=== PATIENT | female | born 1980 | race Hispanic/Latino ===

== ENCOUNTER 2021-12-26 20:54 | Emergency (ER) | payer OTHER, SELFPAY ==
[2021-12-26] MEDS ORDERED: Ketorolac Tromethamine 30 MG/ML VIAL ONE (21:25)
[2021-12-26 21:43] LABS: #Eosinphils 0.1 10x3/uL (0.0-0.5); #Neutrophils 8.3 10x3/uL (1.5-8.4); %Basophils 0.3 % (0.0-2.0); %Eosinophils 0.7 % (0.0-6.0); %Lymphocytes 21.7 % (18.0-47.0); %Monocytes 8.3 % (0.0-10.0); %Neutrophils 68.5 % (40.0-75.0); Hemoglobin 13.8 g/dL (12.0-15.5); Mean Corpuscular HGB CONC 33.9 g/dL (32.0-36.0); Mean Corpuscular Hemoglobin 28.3 pg (27.0-33.0); Mean Corpuscular Volume 83.6 fl (81.6-98.3); Platelet Count 213 10x3/uL (150-450); RBC Distribution Width 13.3 % (11.5-14.5); Red Blood Cell (RBC) Count 4.87 10x6/uL (3.90-5.03); White Blood Cell (WBC) Count 12.1 10x3/uL (3.5-10.5)
[2021-12-26] MEDS ORDERED: Morphine 4 MG/ML VIAL ONE (21:43)
[2021-12-26] MEDS ORDERED: Ondansetron PF 4 MG/2 ML Vial ONE (21:43)
[2021-12-26 21:48] LABS: BHCG - Serum Negative (NEGATIVE); Pregs Control Background? CLEAR/WHITE (CLR/WHITE); Pregs Control Bar Appear? YES (CONTROL BAR)
[2021-12-26 21:57] LABS: ALT (SGPT) 48 U/L (8-55); AST (SGOT) 25 U/L (5-34); Albumin 3.8 g/dL (3.5-5.0); Alkaline Phosphatase 107 U/L (40-110); Anion Gap 15 mmol/L (10-20); BUN (Urea Nitrogen) 11 mg/dL (7.0-18.7); Calc. Creatinine Clearance 0 mL/min (70-130); Calcium 9.2 mg/dL (7.8-10.44); Carbon Dioxide 21 mmol/L (22-29); Chloride 101 mmol/L (98-107); Estimated GFR 99; Globulin 3.6 g/dL (2.4-3.5); Glucose 347 mg/dL (70-105); Lipase 26 U/L (8-78); Potassium 3.7 mmol/L (3.5-5.1); Protein, Total 7.4 g/dL (6.0-8.3); Sodium 133 mmol/L (136-145)
[2021-12-26 22:04] LABS: Pregnancy Test - Urine (BHCG) Negative (Negative); Pregu Control Background? CLEAR/WHITE (CLR/WHITE); Pregu Control Bar Appear? YES (CONTROL BAR); Specific Gravity 1.015 (1.002-1.036)
[2021-12-26 22:11] LABS: Bilirubin Neg (Negative); Blood, Urine 25 (Negative); Clarity Slightly Cloudy (Clear); Glucose, Urine (Dipstick) >=1000 mg/dL (Negative); Ketone, Urine 5 mg/dL (Negative); Leukocyte 25 (Negative); Nitrite Negative (Negative); Protein, Urine (Dipstick) Negative (Neg-Trace); Specific Gravity, Urine 1.015 (1.002-1.036); Urobilinogen Normal mg/dL (Less than 2)
[2021-12-26 22:16] LABS: Bacteria/HPF 3+ HPF (None Seen); Squamous Epithelial 0-3 HPF (0-3)
[2021-12-27] MEDS ORDERED: diphenhydrAMINE 50 MG/ML VIAL ONE (00:07)
[2021-12-27] MEDS ORDERED: Haloperidol Lactate 5 MG/ML VIAL ONE (00:07)
[2021-12-27] MEDS ORDERED: HYDROmorphone 0.5 MG/0.5 ML SYRINGE ONE ×2 (02:05→03:58)
== END 2021-12-27 04:35 | disposition home or self-care (01) ==
LOC: CSHERS 20:54
DX: N83.201 Unspecified ovarian cyst, right side (principal); R10.84 Generalized abdominal pain; F17.210 Nicotine dependence, cigarettes, uncomplicated; E11.9 Type 2 diabetes mellitus without complications; Z79.84 Long term (current) use of oral hypoglycemic drugs
CPT/HCPCS: 36415; 74177; 76856; 80053; 81003; 81015; 81025; 83605; 83690; 84702; 84703; 85025; 96361; 96374; 96375; 96376; J1170; J1200; J1630; J1885; J2270; J2405

== ENCOUNTER 2021-12-27 12:50 | Observation (INO) | payer SELFPAY ==
[2021-12-27] MEDS ORDERED: Fentanyl 100 MCG/2 ML VIAL ONE ×3 (15:16→19:03)
[2021-12-27] MEDS ORDERED: Ketorolac Tromethamine 30 MG/ML VIAL ONE (15:16)
[2021-12-27 15:55] LABS: #Eosinphils 0.1 10x3/uL (0.0-0.5); #Monocytes 0.8 10x3/uL (0.0-1.1); #Neutrophils 9.1 10x3/uL (1.5-8.4); %Basophils 0.2 % (0.0-2.0); %Eosinophils 0.4 % (0.0-6.0); %Lymphocytes 17.4 % (18.0-47.0); %Monocytes 6.4 % (0.0-10.0); %Neutrophils 75.1 % (40.0-75.0); Hemoglobin 12.8 g/dL (12.0-15.5); Mean Corpuscular HGB CONC 33.8 g/dL (32.0-36.0); Mean Corpuscular Hemoglobin 28.4 pg (27.0-33.0); Mean Platelet Volume 10.5 fl (7.4-10.4); Platelet Count 189 10x3/uL (150-450); RBC Distribution Width 13.2 % (11.5-14.5); Red Blood Cell (RBC) Count 4.51 10x6/uL (3.90-5.03); White Blood Cell (WBC) Count 12.2 10x3/uL (3.5-10.5)
[2021-12-27 15:59] LABS: BHCG - Serum Negative (NEGATIVE); Pregs Control Background? CLEAR/WHITE (CLR/WHITE); Pregs Control Bar Appear? YES (CONTROL BAR)
[2021-12-27 16:07] LABS: Anion Gap 12 mmol/L (10-20); BUN (Urea Nitrogen) 8 mg/dL (7.0-18.7); Calc. Creatinine Clearance 0 mL/min (70-130); Calcium 8.7 mg/dL (7.8-10.44); Carbon Dioxide 24 mmol/L (22-29); Chloride 102 mmol/L (98-107); Estimated GFR 114; Glucose 223 mg/dL (70-105); Potassium 3.7 mmol/L (3.5-5.1); Sodium 134 mmol/L (136-145)
[2021-12-27] MEDS ORDERED: Morphine 4 MG/ML VIAL ONE (16:30)
[2021-12-27] MEDS ORDERED: HumaLOG 300 UNITS/3 ML VIAL SC PRN (16:45)
[2021-12-27] MEDS ORDERED: Calcium Carbonate 500 MG ChewTAB PO PRN (16:45)
[2021-12-27] MEDS ORDERED: Senokot S 8.6-50 MG TAB PO PRN (16:45)
[2021-12-27] MEDS ORDERED: Dextrose 5% in Water 1,000 ML IV PRN (16:45)
[2021-12-27] MEDS ORDERED: Ondansetron PF 4 MG/2 ML Vial IVP PRN (16:45)
[2021-12-27] MEDS ORDERED: Morphine 4 MG/ML VIAL SLOW IVP PRN (16:45)
[2021-12-27] MEDS ORDERED: Bisacodyl 5 MG TAB PO PRN (16:45)
[2021-12-27] MEDS ORDERED: Dextrose 50% Abboject 50 ML SYRINGE SLOW IVP PRN (16:45)
[2021-12-27] MEDS ORDERED: Ondansetron ODT 4 MG TAB PO PRN (16:45)
[2021-12-27] MEDS ORDERED: cefTRIAXone\\ROCEPHIN 2 GM VIAL ONE (18:09)
[2021-12-27 19:20] LABS: SARS-CoV-2 NAA Rapid Test Not Detected (NotDetected)
[2021-12-27] MEDS: Acetaminophen 500 MG TAB PO SCH (21:54)
[2021-12-27] MEDS: Cyclobenzaprine 10 MG TAB PO SCH (21:55)
[2021-12-27] MEDS: Ketorolac Tromethamine 30 MG/ML VIAL IVP SCH (22:07)
[2021-12-27] MEDS: HumaLOG 300 UNITS/3 ML VIAL SC PRN (23:53)
[2021-12-27] MEDS: Lactated Ringer's 1,000 ML IV SCH (23:55)
[2021-12-28] MEDS ORDERED: Morphine 4 MG/ML VIAL SLOW IVP SCH (00:30)
[2021-12-28] MEDS: Promethazine HCl 25 MG in Sodium Chloride 0.9% 50 ML IVPB PRN ×2 (00:56→09:15)
[2021-12-28] MEDS: Acetaminophen 500 MG TAB PO SCH (02:00)
[2021-12-28] MEDS: Ketorolac Tromethamine 30 MG/ML VIAL IVP SCH ×2 (03:51→09:13)
[2021-12-28 05:06] LABS: #Eosinphils 0.1 10x3/uL (0.0-0.5); #Monocytes 0.6 10x3/uL (0.0-1.1); %Basophils 0.3 % (0.0-2.0); %Eosinophils 1.5 % (0.0-6.0); %Lymphocytes 27.5 % (18.0-47.0); %Monocytes 7.9 % (0.0-10.0); %Neutrophils 62.2 % (40.0-75.0); Hemoglobin 11.9 g/dL (12.0-15.5); Mean Corpuscular HGB CONC 33.5 g/dL (32.0-36.0); Mean Corpuscular Hemoglobin 28.3 pg (27.0-33.0); Mean Corpuscular Volume 84.5 fl (81.6-98.3); Mean Platelet Volume 10.7 fl (7.4-10.4); Platelet Count 185 10x3/uL (150-450); RBC Distribution Width 13.3 % (11.5-14.5)
[2021-12-28 05:15] LABS: Anion Gap 13 mmol/L (10-20); BUN (Urea Nitrogen) 11 mg/dL (7.0-18.7); Calc. Creatinine Clearance 188 mL/min (70-130); Calcium 8.6 mg/dL (7.8-10.44); Carbon Dioxide 24 mmol/L (22-29); Chloride 104 mmol/L (98-107); Estimated GFR 105; Glucose 271 mg/dL (70-105); Potassium 3.6 mmol/L (3.5-5.1); Sodium 137 mmol/L (136-145)
[2021-12-28] MEDS ORDERED: Acetaminophen 500 MG TAB PO SCH (06:00)
[2021-12-28] MEDS: HYDROcodone/Acetaminophen 7.5/325 mg Tablet PO PRN ×2 (06:10→11:36)
[2021-12-28] MEDS: HumaLOG 300 UNITS/3 ML VIAL SC PRN ×2 (06:13→11:36)
[2021-12-28] MEDS: Lactated Ringer's 1,000 ML IV SCH ×2 (08:04→09:13)
[2021-12-28] MEDS: Cyclobenzaprine 10 MG TAB PO SCH (09:15)
[2021-12-28 11:34] VITALS: BP 114/73; TEMP 98.4
[2021-12-28 12:57] LABS: Hemoglobin A1c 9.8 % (4.0-6.0)
[2021-12-28] MEDS ORDERED: cefTRIAXone\\ROCEPHIN 1 GM in Sodium Chloride 0.9% 100 ML IVPB SCH ×2 (16:00→18:00)
== END 2021-12-28 14:45 | disposition home or self-care (01) ==
LOC: CSHERS 12:50 → CSHPP 19:23
PROVIDERS: ADMIT Obstetrics & Gynecology; ATTEND Obstetrics & Gynecology
DX: N83.201 Unspecified ovarian cyst, right side (principal); N39.0 Urinary tract infection, site not specified; E11.9 Type 2 diabetes mellitus without complications; F17.290 Nicotine dependence, other tobacco product, uncomplicated; Z20.822 Contact with and (suspected) exposure to COVID-19; E66.9 Obesity, unspecified; Z68.41 Body mass index [BMI] 40.0-44.9, adult; Z79.82 Long term (current) use of aspirin; Z79.84 Long term (current) use of oral hypoglycemic drugs; Z79.899 Other long term (current) drug therapy; Z91.018 Allergy to other foods
CPT/HCPCS: 36415; 36416; 76856; 80048; 83036; 83605; 84703; 85025; 87040; 87086; 96361; 96365; 96367; 96375; 96376; G0378; J0696; J1815; J1885; J2270; J2550; J3010; J7120; Q0162; U0002

== ENCOUNTER 2022-05-29 10:33 | Emergency (ER) | payer SELFPAY ==
[~2022-05-29 10:33] MED LIST: Iopamidol 300 61% 100 ML VIAL FS ONE
[2022-05-29 11:06] LABS: Bilirubin Neg (Negative); Blood, Urine 10 (Negative); Clarity Clear (Clear); Glucose, Urine (Dipstick) >=1000 mg/dL (Negative); Ketone, Urine 15 mg/dL (Negative); Leukocyte Negative (Negative); Nitrite Negative (Negative); Protein, Urine (Dipstick) Negative (Neg-Trace); Urobilinogen Normal mg/dL (Less than 2)
[2022-05-29 11:09] LABS: #Eosinphils 0.1 10x3/uL (0.0-0.5); #Monocytes 0.8 10x3/uL (0.0-1.1); #Neutrophils 6.4 10x3/uL (1.5-8.4); %Basophils 0.4 % (0.0-2.0); %Eosinophils 0.8 % (0.0-6.0); %Lymphocytes 27.9 % (18.0-47.0); %Monocytes 7.7 % (0.0-10.0); %Neutrophils 62.9 % (40.0-75.0); Hemoglobin 14.7 g/dL (12.0-15.5); Mean Corpuscular Hemoglobin 28.7 pg (27.0-33.0); Mean Corpuscular Volume 84.2 fl (81.6-98.3); Mean Platelet Volume 10.7 fl (7.4-10.4); Platelet Count 244 10x3/uL (150-450); RBC Distribution Width 13.9 % (11.5-14.5); Red Blood Cell (RBC) Count 5.13 10x6/uL (3.90-5.03); White Blood Cell (WBC) Count 10.1 10x3/uL (3.5-10.5)
[2022-05-29 11:10] LABS: Pregnancy Test - Urine (BHCG) Negative (Negative); Pregu Control Background? CLEAR/WHITE (CLR/WHITE); Pregu Control Bar Appear? YES (CONTROL BAR)
[2022-05-29 11:23] LABS: ALT (SGPT) 88 U/L (8-55); AST (SGOT) 87 U/L (5-34); Albumin 4.2 g/dL (3.5-5.0); Alkaline Phosphatase 104 U/L (40-110); Anion Gap 13 mmol/L (10-20); BUN (Urea Nitrogen) 11 mg/dL (7.0-18.7); Bilirubin, Total 0.9 mg/dL (0.2-1.2); Calc. Creatinine Clearance 0 mL/min (70-130); Calcium 9.4 mg/dL (7.8-10.44); Carbon Dioxide 24 mmol/L (22-29); Chloride 102 mmol/L (98-107); Estimated GFR 105; Globulin 3.9 g/dL (2.4-3.5); Glucose 238 mg/dL (70-105); Lipase 19 U/L (8-78); Potassium 3.8 mmol/L (3.5-5.1); Protein, Total 8.1 g/dL (6.0-8.3); Sodium 135 mmol/L (136-145)
[2022-05-29 11:37] LABS: SARS-CoV-2 NAA Rapid Test Not Detected (NotDetected)
[2022-05-29 11:44] LABS: Bacteria/HPF Rare-Few HPF (None Seen); RBC/HPF 0-3 HPF (0-3); Squamous Epithelial 0-3 HPF (0-3); WBC/HPF 0-3 HPF (0-3)
[2022-05-29] MEDS ORDERED: Ketorolac Tromethamine 30 MG/ML VIAL ONE (13:12)
[2022-05-29] MEDS ORDERED: Ondansetron PF 4 MG/2 ML Vial ONE (13:12)
== END 2022-05-29 14:12 | disposition home or self-care (01) ==
LOC: CSHERS 10:33
DX: R10.9 Unspecified abdominal pain (principal); R11.2 Nausea with vomiting, unspecified; M25.551 Pain in right hip; M25.511 Pain in right shoulder; Z20.822 Contact with and (suspected) exposure to COVID-19
CPT/HCPCS: 36415; 74177; 80053; 81003; 81015; 81025; 83690; 85025; 96374; 96375; J1885; J2405; Q9967

== ENCOUNTER 2022-07-06 15:40 | Observation (INO) | payer SELFPAY ==
[2022-07-06 16:28] VITALS: BP 160/77; TEMP 97.5
[2022-07-06 16:34] VITALS: BMI 39.9
[2022-07-06] MEDS ORDERED: Cyclobenzaprine 10 MG TAB PO PRN (17:24)
[2022-07-06] MEDS ORDERED: Ketorolac Tromethamine 30 MG/ML VIAL IM SCH (17:45)
== END 2022-07-06 19:25 | disposition home or self-care (01) ==
LOC: CSHPP 15:40
PROVIDERS: ADMIT Obstetrics & Gynecology; ATTEND Obstetrics & Gynecology
DX: N83.201 Unspecified ovarian cyst, right side (principal); N83.202 Unspecified ovarian cyst, left side; E11.9 Type 2 diabetes mellitus without complications; Z79.84 Long term (current) use of oral hypoglycemic drugs; Z79.899 Other long term (current) drug therapy; Z91.010 Allergy to peanuts
CPT/HCPCS: 82105; 82378; 84702; 86301; 86304; J1885

== ENCOUNTER 2022-10-08 19:44 | Emergency (ER) | payer SELFPAY ==
[2022-10-08] MEDS ORDERED: Ketorolac Tromethamine 30 MG/ML VIAL ONE (21:28)
== END 2022-10-08 22:40 | disposition home or self-care (01) ==
LOC: CSHERS 19:44
DX: S22.32XA Fracture of one rib, left side, initial encounter for closed fracture (principal); E11.9 Type 2 diabetes mellitus without complications; F17.210 Nicotine dependence, cigarettes, uncomplicated; W19.XXXA Unspecified fall, initial encounter; Y99.0 Civilian activity done for income or pay
CPT/HCPCS: 71250; 96372; J1885

== ENCOUNTER 2023-06-01 04:03 | Inpatient (IN) | payer BC ==
[2023-06-01] MEDS ORDERED: EPINEPHrine 1 MG/ML AMP ONE (04:20)
[2023-06-01] MEDS ORDERED: Bupivacaine PF 0.5% 30 ML VIAL ONE (04:20)
[2023-06-01] MEDS ORDERED: fentaNYL 50 mcg/mL 1 mL Vial ONE ×2 (04:27→06:32)
[2023-06-01] MEDS ORDERED: Lidocaine 2% MPF 10 ML AMP (For Epidural Use) ONE (04:27)
[2023-06-01] MEDS ORDERED: PROPOFOL 20 ML ONE (04:27)
[2023-06-01] MEDS ORDERED: HYDROmorphone 0.5 MG/0.5 ML SYRINGE ONE (04:29)
[2023-06-01] MEDS ORDERED: Rocuronium Bromide 10 MG/ML (10ML VIAL) ONE (04:29)
[2023-06-01] MEDS ORDERED: Midazolam HCl 2 mg/2 ml Vial ONE (04:35)
[2023-06-01] MEDS ORDERED: CEFAZOLIN 2 GM in Sodium Chloride 0.9% 100 ML IVPB SCH (05:00)
[2023-06-01 05:01] LABS: #Eosinphils 0.1 10x3/uL (0.0-0.5); #Monocytes 0.6 10x3/uL (0.0-1.1); #Neutrophils 6.3 10x3/uL (1.5-8.4); %Basophils 0.3 % (0.0-2.0); %Eosinophils 0.8 % (0.0-6.0); %Lymphocytes 27.5 % (18.0-47.0); %Monocytes 6.2 % (0.0-10.0); %Neutrophils 64.9 % (40.0-75.0); Hematocrit 36.2 % (34.9-44.5); Hemoglobin 12.4 g/dL (12.0-15.5); Mean Corpuscular HGB CONC 34.3 g/dL (32.0-36.0); Mean Corpuscular Hemoglobin 28.8 pg (27.0-33.0); Mean Corpuscular Volume 84.2 fl (81.6-98.3); Mean Platelet Volume 10.8 fl (7.4-10.4); Platelet Count 228 10x3/uL (150-450); RBC Distribution Width 13.2 % (11.5-14.5); White Blood Cell (WBC) Count 9.6 10x3/uL (3.5-10.5)
[2023-06-01] MEDS ORDERED: PHENYLEPHRINE-NS 100 MCG/ML 10 ML SYRINGE ONE (05:01)
[2023-06-01] MEDS ORDERED: CEFAZOLIN 1 GM VIAL ONE (05:03)
[2023-06-01 05:11] LABS: ALT (SGPT) 33 U/L (8-55); AST (SGOT) 19 U/L (5-34); Albumin 3.7 g/dL (3.5-5.0); Alkaline Phosphatase 87 U/L (40-110); Anion Gap 13 mmol/L (10-20); BUN (Urea Nitrogen) 8 mg/dL (7.0-18.7); Bilirubin, Total 1.1 mg/dL (0.2-1.2); Calc. Creatinine Clearance 0 mL/min (70-130); Calcium 8.6 mg/dL (7.8-10.44); Carbon Dioxide 22 mmol/L (22-29); Chloride 104 mmol/L (98-107); Estimated GFR 114; Glucose 208 mg/dL (70-105); Potassium 3.6 mmol/L (3.5-5.1); Protein, Total 6.7 g/dL (6.0-8.3); Sodium 135 mmol/L (136-145)
[2023-06-01] MEDS ORDERED: Ondansetron PF 4 MG/2 ML Vial ONE (05:22)
[2023-06-01] MEDS ORDERED: Dexamethasone 20 MG/5 ML VIAL ONE (05:22)
[2023-06-01] MEDS ORDERED: Ketorolac Tromethamine 30 MG/ML VIAL ONE ×2 (05:22→15:48)
[2023-06-01] MEDS ORDERED: Glycopyrrolate 0.2 MG/ML 5 ML SYRINGE ONE (05:46)
[2023-06-01 05:51] LABS: PTT 27.6 sec (22.0-33.0); Prothrombin Time 10.6 sec (9.5-12.1)
[2023-06-01] MEDS: Lactated Ringer's 1,000 ML IV SCH ×2 (07:15→18:30)
[2023-06-01] MEDS ORDERED: Dextrose 5 %-0.45 % NaCl 1,000 ML IV SCH (07:56)
[2023-06-01] MEDS ORDERED: diphenhydrAMINE 25 MG CAP PO PRN (07:56)
[2023-06-01] MEDS ORDERED: Bisacodyl 10 MG SUPP PR PRN (07:56)
[2023-06-01] MEDS ORDERED: Ondansetron PF 4 MG/2 ML Vial IVP PRN (08:42)
[2023-06-01] MEDS ORDERED: Ondansetron ODT 4 MG TAB SL PRN (08:46)
[2023-06-01] MEDS: metFORMIN 500 MG TAB PO SCH ×2 (09:35→15:33)
[2023-06-01] MEDS: HYDROcodone/Acetaminophen 10/325 mg Tablet PO PRN ×3 (10:12→22:31)
[2023-06-01] MEDS: Simethicone Chewable 80 MG TAB PO PRN ×3 (10:13→22:31)
[2023-06-01] MEDS ORDERED: Dextrose 50% Abboject 50 ML SYRINGE SLOW IVP PRN (12:05)
[2023-06-01] MEDS ORDERED: Dextrose 5% in Water 1,000 ML IV PRN (12:05)
[2023-06-01] MEDS ORDERED: Glucagon 1 MG/ML KIT IM PRN (12:05)
[2023-06-01] MEDS: HumaLOG 300 UNITS/3 ML VIAL SC PRN ×2 (13:04→16:58)
[2023-06-01] MEDS: Morphine 4 MG/ML VIAL SLOW IVP PRN ×2 (15:33→20:10)
[2023-06-01] MEDS ORDERED: Ketorolac Tromethamine 30 MG/ML VIAL IVP SCH (15:45)
[2023-06-01 22:57] VITALS: BMI 29.3
[2023-06-02] MEDS: Morphine 4 MG/ML VIAL SLOW IVP PRN ×6 (00:29→21:50)
[2023-06-02] MEDS: HYDROcodone/Acetaminophen 10/325 mg Tablet PO PRN ×2 (02:27→11:32)
[2023-06-02] MEDS: Simethicone Chewable 80 MG TAB PO PRN ×3 (04:18→13:33)
[2023-06-02 05:42] LABS: Hematocrit 34.2 % (34.9-44.5); Hemoglobin 11.3 g/dL (12.0-15.5); Mean Corpuscular Hemoglobin 28.1 pg (27.0-33.0); Mean Corpuscular Volume 85.1 fl (81.6-98.3); Mean Platelet Volume 10.7 fl (7.4-10.4); Platelet Count 199 10x3/uL (150-450); RBC Distribution Width 13.2 % (11.5-14.5); Red Blood Cell (RBC) Count 4.02 10x6/uL (3.90-5.03); White Blood Cell (WBC) Count 11.5 10x3/uL (3.5-10.5)
[2023-06-02] MEDS: HumaLOG 300 UNITS/3 ML VIAL SC PRN ×4 (08:13→22:04)
[2023-06-02] MEDS: metFORMIN 500 MG TAB PO SCH ×2 (08:13→17:04)
[2023-06-02] MEDS ORDERED: Iopamidol 300 61% 100 ML VIAL FS ONE (09:58)
[2023-06-02 16:10] LABS: #Eosinphils 0.1 10x3/uL (0.0-0.5); #Neutrophils 7.9 10x3/uL (1.5-8.4); %Basophils 0.3 % (0.0-2.0); %Eosinophils 0.6 % (0.0-6.0); %Lymphocytes 24.5 % (18.0-47.0); %Monocytes 8.1 % (0.0-10.0); %Neutrophils 66.2 % (40.0-75.0); Hematocrit 35.5 % (34.9-44.5); Hemoglobin 11.8 g/dL (12.0-15.5); Mean Corpuscular HGB CONC 33.2 g/dL (32.0-36.0); Mean Corpuscular Hemoglobin 28.3 pg (27.0-33.0); Mean Corpuscular Volume 85.1 fl (81.6-98.3); Mean Platelet Volume 10.7 fl (7.4-10.4); Platelet Count 215 10x3/uL (150-450); RBC Distribution Width 13.6 % (11.5-14.5); Red Blood Cell (RBC) Count 4.17 10x6/uL (3.90-5.03); White Blood Cell (WBC) Count 11.9 10x3/uL (3.5-10.5)
[2023-06-02] MEDS: Ibuprofen 800 MG TAB PO SCH (16:56)
[2023-06-02] MEDS: Lactated Ringer's 1,000 ML IV SCH ×2 (18:19→18:20)
[2023-06-02] MEDS ORDERED: Acetaminophen 500 MG TAB PO SCH (18:30)
[2023-06-02] MEDS ORDERED: HYDROcodone/Acetaminophen 10/325 mg Tablet PO PRN (19:04)
[2023-06-02] MEDS ORDERED: Docusate 100 MG CAP PO SCH (19:30)
[2023-06-02] MEDS ORDERED: Polyethylene Glycol 3350 17 GM Packet PO SCH (19:30)
[2023-06-02] MEDS: Simethicone Chewable 80 MG TAB PO SCH (21:49)
[2023-06-03] MEDS: Ibuprofen 800 MG TAB PO SCH ×3 (01:04→15:43)
[2023-06-03 04:18] LABS: Hematocrit 31.5 % (34.9-44.5); Hemoglobin 10.3 g/dL (12.0-15.5); Mean Corpuscular HGB CONC 32.7 g/dL (32.0-36.0); Mean Corpuscular Hemoglobin 27.9 pg (27.0-33.0); Mean Corpuscular Volume 85.4 fl (81.6-98.3); Mean Platelet Volume 10.9 fl (7.4-10.4); Platelet Count 202 10x3/uL (150-450); RBC Distribution Width 13.6 % (11.5-14.5); Red Blood Cell (RBC) Count 3.69 10x6/uL (3.90-5.03)
[2023-06-03] MEDS: Acetaminophen 500 MG TAB PO SCH ×3 (05:43→20:35)
[2023-06-03] MEDS: Morphine 4 MG/ML VIAL SLOW IVP PRN (05:48)
[2023-06-03] MEDS ORDERED: Morphine 2 MG/ML VIAL SLOW IVP PRN ×2 (06:10→17:39)
[2023-06-03] MEDS: Lactated Ringer's 1,000 ML IV SCH (07:05)
[2023-06-03] MEDS: metFORMIN 500 MG TAB PO SCH (07:05)
[2023-06-03] MEDS: Docusate 100 MG CAP PO SCH ×2 (07:44→20:35)
[2023-06-03] MEDS: Simethicone Chewable 80 MG TAB PO SCH ×4 (07:44→22:48)
[2023-06-03] MEDS: Polyethylene Glycol 3350 17 GM Packet PO SCH ×3 (07:44→20:35)
[2023-06-03] MEDS: HYDROcodone/Acetaminophen 5/325 mg Tablet PO PRN ×3 (10:27→23:05)
[2023-06-03] MEDS: HumaLOG 300 UNITS/3 ML VIAL SC PRN ×3 (11:25→20:46)
[2023-06-03] MEDS ORDERED: Ibuprofen 600 MG TAB PO SCH (17:45)
[2023-06-03] MEDS: Ibuprofen 600 MG TAB PO SCH ×3 (17:55→23:05)
[2023-06-03] MEDS ORDERED: Simethicone Chewable 80 MG TAB PO SCH (22:45)
[2023-06-04] MEDS: HYDROcodone/Acetaminophen 5/325 mg Tablet PO PRN (04:30)
[2023-06-04] MEDS: Acetaminophen 500 MG TAB PO SCH (04:32)
[2023-06-04] MEDS: HumaLOG 300 UNITS/3 ML VIAL SC PRN (06:03)
[2023-06-04] MEDS: metFORMIN 500 MG TAB PO SCH (07:17)
[2023-06-04 07:59] VITALS: BP 135/86; TEMP 98.2
[2023-06-04] MEDS: Polyethylene Glycol 3350 17 GM Packet PO SCH (08:22)
[2023-06-04] MEDS: Docusate 100 MG CAP PO SCH (08:22)
[2023-06-04] MEDS: Ibuprofen 600 MG TAB PO SCH (08:22)
[2023-06-04] MEDS ORDERED: Simethicone Chewable 80 MG TAB PO SCH (09:00)
== END 2023-06-04 08:29 | disposition home or self-care (01) | DRG 743 ==
LOC: CSHERS 04:03 → CSHPP 04:51
PROVIDERS: ADMIT Obstetrics & Gynecology; ATTEND Obstetrics & Gynecology
PROC: 0UB50ZZ Excision of Right Fallopian Tube, Open Approach (ICD-10-PCS; principal; 2023-06-01)
PROC: 0UB00ZZ Excision of Right Ovary, Open Approach (ICD-10-PCS; 2023-06-01)
DX: N83.511 Torsion of right ovary and ovarian pedicle (principal); E11.9 Type 2 diabetes mellitus without complications; Z90.49 Acquired absence of other specified parts of digestive tract; F41.9 Anxiety disorder, unspecified; F17.210 Nicotine dependence, cigarettes, uncomplicated; Z79.899 Other long term (current) drug therapy; Z79.84 Long term (current) use of oral hypoglycemic drugs; K59.00 Constipation, unspecified; N83.201 Unspecified ovarian cyst, right side; Z79.01 Long term (current) use of anticoagulants
CPT/HCPCS: 36415; 36416; 74177; 76856; 80053; 81001; 84702; 85025; 85027; 85610; 85730; 86850; 86900; 86901; 87086; 88305; 96361; 96374; 96375; 96376; C1889; J0171; J0690; J1100; J1170; J1815; J1885; J2250; J2270; J2272; J2405; J2704; J3010; J7120; Q0162; Q9967; S0020

== ENCOUNTER 2023-06-11 11:39 | Emergency (ER) | payer BC ==
[2023-06-11 12:31] LABS: Bilirubin Neg (Negative); Blood, Urine 25 (Negative); Clarity Clear (Clear); Glucose, Urine (Dipstick) >=1000 mg/dL (Negative); Ketone, Urine Negative (Negative); Leukocyte Negative (Negative); Nitrite Negative (Negative); Protein, Urine (Dipstick) 15 mg/dl (Neg-Trace); Urobilinogen Normal mg/dL (Less than 2)
[2023-06-11] MEDS ORDERED: Ketorolac Tromethamine 30 MG/ML VIAL ONE ×2 (12:35→13:49)
[2023-06-11 12:47] LABS: #Monocytes 1.2 10x3/uL (0.0-1.1); #Neutrophils 12.2 10x3/uL (1.5-8.4); %Basophils 0.2 % (0.0-2.0); %Eosinophils 0.3 % (0.0-6.0); %Lymphocytes 10.7 % (18.0-47.0); %Monocytes 7.7 % (0.0-10.0); %Neutrophils 80.5 % (40.0-75.0); Hematocrit 39.5 % (34.9-44.5); Hemoglobin 13.2 g/dL (12.0-15.5); Mean Corpuscular HGB CONC 33.4 g/dL (32.0-36.0); Mean Corpuscular Volume 83.9 fl (81.6-98.3); Mean Platelet Volume 9.9 fl (7.4-10.4); Platelet Count 318 10x3/uL (150-450); RBC Distribution Width 13.2 % (11.5-14.5); Red Blood Cell (RBC) Count 4.71 10x6/uL (3.90-5.03); White Blood Cell (WBC) Count 15.1 10x3/uL (3.5-10.5)
[2023-06-11 12:52] LABS: Bacteria/HPF 2+ HPF (None Seen); CAUTI Indications for Culture Pelvic or flank pain; RBC/HPF 0-3 HPF (0-3); WBC/HPF 0-3 HPF (0-3)
[2023-06-11 12:53] LABS: Urine Culture Reflex No No
[2023-06-11 12:56] LABS: ALT (SGPT) 16 U/L (8-55); AST (SGOT) 15 U/L (5-34); Albumin 3.9 g/dL (3.5-5.0); Alkaline Phosphatase 98 U/L (40-110); Anion Gap 14 mmol/L (10-20); BUN (Urea Nitrogen) 11 mg/dL (7.0-18.7); Bilirubin, Total 1.1 mg/dL (0.2-1.2); Calc. Creatinine Clearance 0 mL/min (70-130); Carbon Dioxide 22 mmol/L (22-29); Chloride 99 mmol/L (98-107); Estimated GFR 99; Glucose 339 mg/dL (70-105); Potassium 3.8 mmol/L (3.5-5.1); Protein, Total 7.9 g/dL (6.0-8.3); Sodium 131 mmol/L (136-145)
[2023-06-11] MEDS ORDERED: HYDROcodone/Acetaminophen 5/325 mg Tablet ONE (14:44)
== END 2023-06-11 17:44 | disposition home or self-care (01) ==
LOC: CSHERS 11:39
DX: L76.34 Postprocedural seroma of skin and subcutaneous tissue following other procedure (principal); E11.9 Type 2 diabetes mellitus without complications; F17.210 Nicotine dependence, cigarettes, uncomplicated
CPT/HCPCS: 74177; 80053; 81001; 85025; 96374; 96376; J1885; Q9967

== ENCOUNTER 2024-05-29 09:46 | Emergency (ER) | payer OTHER ==
[2024-05-29] MEDS ORDERED: Ipratropium/Albuterol 3 ML NEB ONE (11:04)
[2024-05-29 11:07] LABS: Bilirubin Neg (Negative); Blood, Urine 10 (Negative); Clarity Clear (Clear); Glucose, Urine (Dipstick) >=1000 mg/dL (Negative); Ketone, Urine Negative (Negative); Leukocyte 100 (Negative); Nitrite Positive (Negative); Protein, Urine (Dipstick) 15 mg/dl (Neg-Trace); Specific Gravity, Urine 1.015 (1.005-1.030); Urobilinogen Normal mg/dL (Less than 2)
[2024-05-29 11:18] LABS: Pregnancy Test - Urine (BHCG) Negative (Negative); Pregu Control Background? CLEAR/WHITE (CLR/WHITE); Pregu Control Bar Appear? YES (CONTROL BAR); Specific Gravity 1.015 (1.002-1.036)
[2024-05-29] MEDS ORDERED: Cephalexin 250 MG CAP ONE (11:57)
[2024-05-29] MEDS ORDERED: Lisinopril 10 MG TAB PO SCH (12:15)
[2024-05-29 12:23] LABS: Bacteria/HPF 3+ HPF (None Seen); CAUTI Indications for Culture Pelvic or flank pain; RBC/HPF 0-3 HPF (0-3); Squamous Epithelial 0-3 HPF (0-3); Trichomonas/HPF 1+ HPF (None Seen)
[2024-05-29 12:24] LABS: Urine Culture Reflex No No
[2024-05-29] MEDS ORDERED: Furosemide 40 MG TAB ONE (12:50)
[2024-05-29] MEDS ORDERED: cefTRIAXone (ROCEPHIN) 1 GM VIAL ONE (14:05)
[2024-05-29] MEDS ORDERED: Lidocaine 1% PF 5 ML VIAL ONE (14:05)
[2024-05-29 15:29] LABS: Anion Gap 13 mmol/L (10-20); BUN (Urea Nitrogen) 10 mg/dL (7.0-18.7); Calc. Creatinine Clearance 0 mL/min (70-130); Calcium 9.1 mg/dL (7.8-10.44); Carbon Dioxide 26 mmol/L (22-29); Chloride 102 mmol/L (98-107); Estimated GFR 107; Glucose 268 mg/dL (70-105); Potassium 3.7 mmol/L (3.5-5.1); Sodium 137 mmol/L (136-145)
== END 2024-05-29 14:09 | disposition home or self-care (01) ==
LOC: CSHERS 09:46
DX: N10 Acute pyelonephritis (principal); I10 Essential (primary) hypertension; E11.9 Type 2 diabetes mellitus without complications; F17.210 Nicotine dependence, cigarettes, uncomplicated
CPT/HCPCS: 36415; 80048; 81001; 81025; 87428; 94640; 94760; 96372; J0696; J7620